=== PATIENT | male | born 1970 | race Caucasian/White ===

== ENCOUNTER 2017-12-31 11:11 | Emergency (ER) | payer BC ==
--- NOTE | 2017-12-31 11:39 | EDM.PDOC ---
<Aminata Carbone - Last Filed: 12/31/17 11:53> ED HPI GENERAL MEDICAL PROBLEM - General Chief Complaint: Abdominal Pain Stated Complaint: ABDOMINAL PAIN Time Seen by Provider: 12/31/17 11:20 Source of Information: Reports: Patient History Limitations: Reports: No Limitations - History of Present Illness INITIAL COMMENTS - FREE TEXT/NARRATIVE: Patient is a 47 YO male who presents today with concerns of a hernia. He had an abdominal hernia repaired in late April or May 2017. He states this was repaired with mesh. He noticed it coming open again about 2 months ago. He does not remember any incident that would have precipitated this. It has not been causing him any difficulties until this morning. He states his lower abdomen has been cramping around the location of the hernia. He states it is not very painful just uncomfortable. He states he does not feel it much when he is supine but when he stands he says it is much more noticeable. He denies change in bowels, nausea, vomiting or urinary symptoms. He was able to eat this morning which did not increase his discomfort. - Related Data Allergies Allergy/AdvReac Type Severity Reaction Status Date / Time narcotics Allergy Hives Uncoded 12/31/17 11:25 Home Meds: Home Meds . [No Known Home Meds] 12/31/17 [History] ED ROS GENERAL - Review of Systems Review Of Systems: See Below Constitutional: Reports: No Symptoms Respiratory: Reports: No Symptoms Cardiovascular: Reports: No Symptoms GI/Abdominal: Reports: Abdominal Pain. Denies: Constipation, Diarrhea, Nausea, Vomiting Skin: Reports: No Symptoms Neurological: Reports: No Symptoms Psychiatric: Reports: No Symptoms ED EXAM, GENERAL - Physical Exam Exam: See Below Exam Limited By: No Limitations General Appearance: Alert, WD/WN, No Apparent Distress Head: Atraumatic Respiratory/Chest: No Respiratory Distress, Lungs Clear, Normal Breath Sounds Cardiovascular: Regular Rate, Rhythm, No Murmur GI/Abdominal: Normal Bowel Sounds, Soft, Tender (slightly tender over area of hernia, no evidence of strangulation), Hernia (superior and to the left of the umbilicus. Approximately 3 cm by 1 cm) Neurological: Alert, Oriented, CN II-XII Intact, Normal Cognition, No Motor/ Sensory Deficits Psychiatric: Normal Affect, Normal Mood Skin Exam: Warm, Dry, Intact, Normal Color Course - Vital Signs Last Recorded V/S: Last Vital Signs Temp 97 F 12/31/17 11:22 Pulse 58 L 12/31/17 13:18 Resp 20 12/31/17 13:18 BP 122/88 12/31/17 13:18 Pulse Ox 99 12/31/17 13:18 - Orders/Labs/Meds Labs: Laboratory Tests 12/31/17 12/31/17 Range/Units 12:00 12:00 WBC 5.73 (4.23-9.07) K/mm3 RBC 4.86 (4.63-6.08) M/mm3 Hgb 14.3 (13.7-17.5) gm/L Hct 43.1 (40.1-51.0) % MCV 88.7 (79.0-92.2) fl MCH 29.4 (25.7-32.2) pg MCHC 33.2 (32.2-35.5) g/dl RDW Std Deviation 43.4 (35.1-43.9) fL Plt Count 264 (163-337) K/mm3 MPV 10.6 (9.4-12.3) fl Neutrophils % (Manual) 45 (40-60) % Band Neutrophils % 0 (0-10) % Lymphocytes % (Manual) 49 H (20-40) % Atypical Lymphs % 0 % Monocytes % (Manual) 2 (2-10) % Eosinophils % (Manual) 3 (0.8-7.0) % Basophils % (Manual) 1 (0.2-1.2) Platelet Estimate Adequate Anisocytosis 1+ slight RBC Morph Comment Abnormal Sodium 140 (136-145) mEq/L Potassium 3.8 (3.5-5.1) mEq/L Chloride 105 (98-107) mEq/L Carbon Dioxide 27 (21-32) mEq/L Anion Gap 11.8 (5-15) BUN 15 (7-18) mg/dL Creatinine 1.1 (0.7-1.3) mg/dL Est Cr Clr Drug Dosing 83.02 mL/min Estimated GFR (MDRD) > 60 (>60) mL/min BUN/Creatinine Ratio 13.6 L (14-18) Glucose 117 H (74-106) mg/dL Calcium 8.8 (8.5-10.1) mg/dL Total Bilirubin 0.5 (0.2-1.0) mg/dL AST 13 L (15-37) U/L ALT 27 (16-63) U/L Alkaline Phosphatase 48 (46-116) U/L C-Reactive Protein < 0.2 (<1.0) mg/dL Total Protein 7.4 (6.4-8.2) g/dl Albumin 3.9 (3.4-5.0) g/dl Globulin 3.5 gm/dL Albumin/Globulin Ratio 1.1 (1-2) Lipase 130 (73-393) U/L Departure - Departure Disposition: Home, Self-Care 01 Clinical Impression: History of umbilical hernia repair, Abdominal pain in male Instructions: Umbilical Hernia, Adult, Abdominal Pain, Adult, [id number] Referrals: Kenneth Ly MD [Physician] - Christ Hong MD [Physician] - Forms: ED Department Discharge Additional Instructions: Suspect cause of discomfort is most likely related to the mesh used for hernia repair. Refrain from any activities that cause worsening pain. Utilize Tylenol and ibuprofen as needed for any discomfort. Please see a general surgeon for reevaluation and treatment. Return to the ED if you develop any new or worsening symptoms. <Ross Gillis O - Last Filed: 01/01/18 10:46> ED HPI GENERAL MEDICAL PROBLEM - General Source of Information: Reports: Patient History Limitations: Reports: No Limitations Abdomen Pain Score (Numeric/FACES): 7 Past Medical History - Past Surgical History GI Surgical History: Reports: Cholecystectomy, Hernia Repair/Other Social & Family History - Tobacco Use Smoking Status *Q: Never Smoker - Caffeine Use Caffeine Use: Reports: Energy Drinks, Soda, Tea - Recreational Drug Use Recreational Drug Use: No Course - Orders/Labs/Meds Labs: Laboratory Tests 12/31/17 12/31/17 Range/Units 12:00 12:00 WBC 5.73 (4.23-9.07) K/mm3 RBC 4.86 (4.63-6.08) M/mm3 Hgb 14.3 (13.7-17.5) gm/L Hct 43.1 (40.1-51.0) % MCV 88.7 (79.0-92.2) fl MCH 29.4 (25.7-32.2) pg MCHC 33.2 (32.2-35.5) g/dl RDW Std Deviation 43.4 (35.1-43.9) fL Plt Count 264 (163-337) K/mm3 MPV 10.6 (9.4-12.3) fl Neutrophils % (Manual) 45 (40-60) % Band Neutrophils % 0 (0-10) % Lymphocytes % (Manual) 49 H (20-40) % Atypical Lymphs % 0 % Monocytes % (Manual) 2 (2-10) % Eosinophils % (Manual) 3 (0.8-7.0) % Basophils % (Manual) 1 (0.2-1.2) Platelet Estimate Adequate Anisocytosis 1+ slight RBC Morph Comment Abnormal Sodium 140 (136-145) mEq/L Potassium 3.8 (3.5-5.1) mEq/L Chloride 105 (98-107) mEq/L Carbon Dioxide 27 (21-32) mEq/L Anion Gap 11.8 (5-15) BUN 15 (7-18) mg/dL Creatinine 1.1 (0.7-1.3) mg/dL Est Cr Clr Drug Dosing 83.02 mL/min Estimated GFR (MDRD) > 60 (>60) mL/min BUN/Creatinine Ratio 13.6 L (14-18) Glucose 117 H (74-106) mg/dL Calcium 8.8 (8.5-10.1) mg/dL Total Bilirubin 0.5 (0.2-1.0) mg/dL AST 13 L (15-37) U/L ALT 27 (16-63) U/L Alkaline Phosphatase 48 (46-116) U/L C-Reactive Protein < 0.2 (<1.0) mg/dL Total Protein 7.4 (6.4-8.2) g/dl Albumin 3.9 (3.4-5.0) g/dl Globulin 3.5 gm/dL Albumin/Globulin Ratio 1.1 (1-2) Lipase 130 (73-393) U/L - Re-Assessments/Exams Free Text/Narrative Re-Assessment/Exam: X-ray of the abdomen revealed nonspecific air and stool patterns. No concerning findings noted. Final interpretation is pending. Labs reviewed: CBC and chem. Panel essentially normal. Glucose 117. CRP less than 0.2. Lipase 130. I personally examined the patient and agree with Aminata BLANDON. Patients pain is most likely related to the mesh placed to repair umbilical hernia. On standing I did not see and or feel a hernia present. Patients pain appears to be along the outer borders of the mesh. He will followup with General Surgeon to address discomfort. Return precautions discussed with patient. He had no additional questions or concerns. The patient remained hemodynamically stable while under my care in the E.D. I reviewed the patients care today and discussed the concerning symptoms for which to returnto the E.D. with the patient/family. The patient/family verbalized understanding. All questions were answered. Departure - Departure Time of Disposition: 13:10 Condition: Good
--- NOTE | 2017-12-31 14:50 | CR ---
Abdomen: Supine and upright views of the abdomen were obtained. Comparison: No prior abdominal x-ray. Surgical clips are seen from prior cholecystectomy. Small calcification within the left pelvis is compatible with phlebolith. Bowel gas pattern is normal. No soft tissue abnormality seen. Bony structures are unremarkable. Impression: 1. Incidental findings. Nothing acute is seen. Diagnostic code #2
== END 2017-12-31 13:18 | disposition home or self-care (01) ==
LOC: JD.ED 11:11
DX: R10.9 Unspecified abdominal pain (principal); Z88.5 Allergy status to narcotic agent; Z87.19 Personal history of other diseases of the digestive system
CPT/HCPCS: 36415; 74019; 74019-26; 80053; 83690; 85025; 86140; 99283; 99284

== ENCOUNTER 2020-04-18 08:28 | Observation (INO) | payer OTHER ==
[~2020-04-18 08:28] MED LIST: Lidocaine 1%/Sod Bicarbonate in NS 8.4% 1 ML Syringe IDERM PRN; Sodium Chloride 0.9% 10 ML Syringe FLUSH PRN
[2020-04-18] MEDS: Lactated Ringers 1,000 ML IV SCH ×3 (08:45→14:32)
[2020-04-18] MEDS ORDERED: Bupivacaine 0.5%/EPINEPHrine 1:200,000 50 ML MDV ONE (09:27)
[2020-04-18] MEDS ORDERED: Lidocaine 1% with EPINEPHrine 1:100,000 20 ML MDV ONE (09:27)
[2020-04-18] MEDS ORDERED: Lidocaine 2% with EPINEPHrine 1:200,000 20 ML SDV ONE (09:36)
[2020-04-18] MEDS ORDERED: fentaNYL 100 MCG/2 ML SDV ONE ×2 (09:37→11:03)
[2020-04-18] MEDS ORDERED: Midazolam 1 MG/ML 2 ML SDV ONE (09:37)
[2020-04-18] MEDS ORDERED: Propofol 200 MG/20 ML SDV ONE ×3 (09:37→11:42)
[2020-04-18] MEDS ORDERED: Lactated Ringers 1,000 ML ONE ×2 (11:24→12:48)
--- NOTE | 2020-04-18 11:30 | PCM.PREANE ---
Preanesthetic Assessment - Anesthesia/Transfusion/Family Hx Anesthesia History: Prior Anesthesia Without Reaction Transfusion History: No Prior Transfusion(s) - Physical Assessment NPO Status Date: 04/17/20 NPO Status Time: 20:00 Vital Signs: Last Vital Signs Temp Pulse 50 L 04/18/20 10:20 Resp 14 04/18/20 10:20 BP 110/78 04/18/20 10:20 Pulse Ox 100 04/18/20 10:20 Height: 1.78 m Weight: 104.78 kg ASA Class: 2 Mental Status: Alert & Oriented x3 Airway Class: Mallampati = 1 Dentition: Reports: Normal Dentition, Norco(s) Thyro-Mental Finger Breadths: 3 Mouth Opening Finger Breadths: 3 - Lab Values: Laboratory Last Values WBC 6.09 K/mm3 (4.23-9.07) 04/18/20 08:46 RBC 4.95 M/mm3 (4.63-6.08) 04/18/20 08:46 Hgb 14.9 gm/dl (13.7-17.5) 04/18/20 08:46 Hct 45.2 % (40.1-51.0) 04/18/20 08:46 MCV 91.3 fl (79.0-92.2) 04/18/20 08:46 MCH 30.1 pg (25.7-32.2) 04/18/20 08:46 MCHC 33.0 g/dl (32.2-35.5) 04/18/20 08:46 RDW Std Deviation 44.8 fL (35.1-43.9) H 04/18/20 08:46 Plt Count 271 K/mm3 (163-337) 04/18/20 08:46 MPV 10.7 fl (9.4-12.3) 04/18/20 08:46 Neut % (Auto) 55.0 % (34.0-67.9) 04/18/20 08:46 Lymph % (Auto) 33.7 % (21.8-53.1) 04/18/20 08:46 [place] % (Auto) 7.2 % (5.3-12.2) 04/18/20 08:46 Eos % (Auto) 3.1 (0.8-7.0) 04/18/20 08:46 Baso % (Auto) 0.7 % (0.1-1.2) 04/18/20 08:46 Neut # (Auto) 3.35 K/mm3 (1.78-5.38) 04/18/20 08:46 Lymph # (Auto) 2.05 K/mm3 (1.32-3.57) 04/18/20 08:46 [place]ataño # (Auto) 0.44 K/mm3 (0.30-0.82) 04/18/20 08:46 Eos # (Auto) 0.19 K/mm3 (0.04-0.54) 04/18/20 08:46 Baso # (Auto) 0.04 K/mm3 (0.01-0.08) 04/18/20 08:46 COVID-19 PCR Not detected (NOT DETECT) 04/14/20 10:00 - Allergies Allergies/Adverse Reactions: Allergies Allergy/AdvReac Type Severity Reaction Status Date / Time acetaminophen [From [place]] Allergy Hives Verified 04/17/20 14:22 codeine Allergy Other Verified 04/17/20 14:22 hydrocodone [From [place]] Allergy Hives Verified 04/17/20 14:22 hydromorphone [From Dilaudid] Allergy Hives Verified 04/17/20 14:22 morphine Allergy Hives Verified 04/17/20 14:22 tramadol Allergy Other Verified 04/17/20 14:22 narcotics Allergy Hives Uncoded 04/17/20 14:22 - Acknowledgements Anesthesia Type Planned: General Anesthesia (as a backup plan), Epidural (for postoperative pain control, placing preoperatively), MAC PreAnesthesia Questionnaire HEENT History: Reports: None Cardiovascular History: Reports: None Respiratory History: Reports: Sleep Apnea Genitourinary History: Reports: None [employer] History: Reports: None Musculoskeletal History: Reports: None Neurological History: Reports: None Psychiatric History: Reports: None Endocrine/Metabolic History: Reports: Vitamin D Deficiency Hematologic History: Reports: None Immunologic History: Reports: None Oncologic (Cancer) History: Reports: None Dermatologic History: Reports: None - Past Surgical History Head Surgeries/Procedures: Reports: None HEENT Surgical History: Reports: None Cardiovascular Surgical History: Reports: None Respiratory Surgical History: Reports: None GI Surgical History: Reports: Cholecystectomy, Hernia Repair/Other Male Surgical History: Reports: Vasectomy Endocrine Surgical History: Reports: None Neurological Surgical History: Reports: None Musculoskeletal Surgical History: Reports: Other (See Below) Other Musculoskeletal Surgeries/Procedures:: foot surgery, knee surgery, left shoulder pain Oncologic Surgical History: Reports: None Dermatological Surgical History: Reports: None - SUBSTANCE USE Smoking Status *Q: Current Every Day Smoker Tobacco Use Within Last Twelve Months: Snuff/Dip Second Hand Smoke Exposure: No Days Per Week of Alcohol Use: 2 Number of Drinks Per Day: 3 Total Drinks Per Week: 6 Recreational Drug Use History: No - HOME MEDS Home Medications: Home Meds . [No Known Home Meds] 12/31/17 [History] - CURRENT (IN HOUSE) MEDS Current Meds: Current Medications Lactated Ringer's (Ringers, Lactated) 1,000 mls @ 125 mls/hr IV ASDIRECTED PERCY Stop: 04/18/20 23:00 Last Admin: 04/18/20 10:54 Dose: 125 mls/hr Documented by: Lidocaine/Sodium Bicarbonate (Buffered Lidocaine 1% In Ns 8.4%) 0.25 ml IDERM ONETIME PRN PRN Reason: Prior to IV Start Stop: 04/18/20 18:00 Last Admin: 04/18/20 08:45 Dose: 0.25 ml Documented by: Sodium Chloride (Saline Flush) 10 ml FLUSH ASDIRECTED PRN PRN Reason: Keep Vein Open Stop: 04/18/20 18:00 Discontinued Medications Bupivacaine HCl/Epinephrine Bitart (Marcaine 0.5%/Epinephrine 1:200,000) Confirm Administered Dose 50 ml .ROUTE .STK-MED ONE Stop: 04/18/20 09:28 Fentanyl (Sublimaze) Confirm Administered Dose 100 mcg .ROUTE .STK-MED ONE Stop: 04/18/20 09:38 Fentanyl (Sublimaze) Confirm Administered Dose 100 mcg .ROUTE .STK-MED ONE Stop: 04/18/20 11:04 Lidocaine/Epinephrine (Xylocaine 1% With Epinephrine 1:100,000) Confirm Administered Dose 40 ml .ROUTE .STK-MED ONE Stop: 04/18/20 09:28 Lidocaine/Epinephrine (Xylocaine-Mpf 2%-Epi 1:200,000) Confirm Administered Dose 20 ml .ROUTE .STK-MED ONE Stop: 04/18/20 09:37 Midazolam HCl (Versed 1 Mg/Ml) Confirm Administered Dose 4 mg .ROUTE .STK-MED ONE Stop: 04/18/20 09:38 Propofol (Diprivan 20 Ml) Confirm Administered Dose 400 mg .ROUTE .STK-MED ONE Stop: 04/18/20 09:38 Propofol (Diprivan 20 Ml) Confirm Administered Dose 200 mg .ROUTE .STK-MED ONE Stop: 04/18/20 10:43
[2020-04-18] MEDS ORDERED: Bupivacaine 0.25% 10 ML SDV ONE (11:59)
[2020-04-18] MEDS ORDERED: Ondansetron 4 MG/2 ML SDV ONE (12:02)
[2020-04-18] MEDS ORDERED: fentaNYL 100 MCG/2 ML SDV EPIDUR PRN (12:42)
[2020-04-18] MEDS ORDERED: ePHEDrine 50 MG/ML SDV IVPUSH PRN (12:42)
--- NOTE | 2020-04-18 12:42 | PCM.PRNOTE ---
- Free Text/Narrative Note: Continuous thoracic epidural catheter placement for postoperative pain management Dx: Recurrent ventral hernia Surgery: Open ventral hernia repair with mesh Requesting surgeon: Dr. Jennifer Garcia Patient has been interviewed, risk/benefits/alternatives discussed, questions answered. Vital signs and labs reviewed. Consent signed. IVF bolus given.. Patient is sitting on the stretcher in preoperative room, supported by RN, positioning using pillow. Time out performed. Mask, head cover, sterile gloves on. Betadine preparation x3 and sterile drape. Local infiltration with 1% Lidocaine at T9 - T10 interspace. 1st attempt with 17G Tuohy needle midline approach. Unablle to obtain loss of resistance after several redirecrion attempts.. 2nd attempt at T10 -T11 interspace. Loss of resistance at 6 cm. No fluid obtained, no blood obtained. No paresthesia encountered. Easy threading in of 19G catheter. Secured at 14 cm at the skin. Test dose given 5 ml of 1.5% Lidocaine with 1:200K epinephrine, negative for intravascular/ negative for intrathecal placement. Vital signs stable. 10 mls of 2 % PF Lidocaine with 1:200K epinephrine, followed by 100 mcg of Fentanyl given in incremental epidural boluses. Catheter dressing applied and filter attached. Level assessed preoperatively at 10:25 approximately T10. Post procedure in PACU : PCEA drip 0.125% Bupivacaine with 2 mcg/ml of Fentanyl started at 13:40 At 14:00 rate at 8 mls/hr with patient controlled bolus 3 mls every 15 min. Patient received instruction and education about PCEA. Level assessed approximately at T9. Start of procedure: 10:00 End of procedure: 10:15
[2020-04-18] MEDS ORDERED: Bupivacaine 0.5% 10 ML SDV ONE (13:17)
--- NOTE | 2020-04-18 13:36 | PCM.PRNOTE ---
- Free Text/Narrative Note: Date: 04/18/2020 Operation: open retrorectus recurrent incisional hernia repair with mesh reinforcement Surgeon: Jaime Garcia MD Pre-op antibiotics: ancef 2 g IV DVT prophylaxis: SCD EBL: 30 cc Findings: recurrent midline abdominal incisional hernia with evidence of prior ventral mesh patch underlay. Hernia measured 4 x 5 cm. No significant adhesions to anterior abdominal wall. A 15 x 20 cm rectangular piece of Progrip mesh was cut to size and placed for reinforcement of repair in the retrorectus space with wide overlap. Detailed Report: An epidural catheter was placed by the anesthesia team prior to going to the OR. The patient was positioned supine on the operating table and time out was performed. Monitored anesthesia care was initiated. A rosales catheter was placed and abdominal hair was clipped. The abdomen was prepped and draped in usual sterile fashion. After ensuring good anesthetic effect with the epidural catheter, a midline laparotomy incision was made from the midepigastrium to about 5 cm inferior to the umbilicus. Dissection continued through subcutaneous fat until a thickened hernia sac was encountered. Superior to the hernia, the linea alba was incised and the abdominal cavity entered safely. The incision was extended through the hernia sac and inferiorly. There were no significant adhesions to the anterior abdominal wall. Thick omentum lay deep to the incision along its entire length. A moist towel was placed to cover the viscera. The edge of the rectus muscle on the right side was palpated, and an incision through the rectus fascia at the medial aspect was made. Muscle fibers were visualized. The anterior sheath and rectus muscle were retracted laterally as the incision through the rectus sheath was extended superiorly and inferiorly about 5 cm above and below the hernia defect. The retrorectus space was developed out laterally until the neurovascular bundles were seen penetrating the posterior aspect of the muscle. The same technique was used on the left side. The posterior sheath and transversalis fascia were then closed along the midline with running 2-0 vicryl suture. Part if the redundant hernia sac and old mesh were excised sharply during this part of the operation. Next, a 15 x 20 cm rectangular piece of Progrip mesh was brought onto the field. This was laid in the retrorectus space and excess mesh was trimmed away with scissors. The mesh was tacked to the underlying tissue at the superior, lateral and inferior edges with simple 2-0 prolene sutures. The anterior rectus fascia was then closed over the mesh, recreating the linea alba, with running 0 PDS suture. Subcutaneous tissue was re-approximated with interrupted vicryl suture at the deep dermal layer and skin was closed with running subcuticular vicryl suture. The wound was dressed with dermabond. The patient tolerated the procedure well.
[2020-04-18] MEDS: Bupivacaine/fentaNYL/NS 100 ML Bag EPIDUR PRN ×2 (13:40→22:27)
--- NOTE | 2020-04-18 14:10 | PCM.POSTAN ---
POST ANESTHESIA ASSESSMENT - MENTAL STATUS Mental Status: Alert, Oriented - VITAL SIGNS Vital Signs: Last Vital Signs Temp 97.0 F 04/18/20 13:12 Pulse 50 L 04/18/20 10:20 Resp 13 04/18/20 13:45 BP 106/73 04/18/20 13:45 Pulse Ox 100 04/18/20 13:50 - RESPIRATORY Respiratory Status: Respiratory Rate WNL, Airway Patent, O2 Saturation Stable, Supplemental Oxygen - CARDIOVASCULAR CV Status: Pulse Rate WNL, Blood Pressure Stable - GASTROINTESTINAL GI Status: No Symptoms - PAIN Pain Score: 5 (epidural drip connected and bolused) - POST OP HYDRATION Hydration Status: Adequate & Stable
[2020-04-18] MEDS: Heparin Sodium 5,000 Units/ML Vial SUBCUT SCH ×2 (14:31→21:32)
[2020-04-18] MEDS: diphenhydrAMINE 50 MG/ML SDV IVPUSH PRN ×2 (17:23→23:05)
[2020-04-19] MEDS ORDERED: Bupivacaine 0.25% 10 ML SDV ONE
[2020-04-19] MEDS ORDERED: Lidocaine 1.5% with EPINEPHrine 1:200,000 5 ML Amp ONE
[2020-04-19] MEDS: Lactated Ringers 1,000 ML IV SCH (00:32)
[2020-04-19] MEDS: Heparin Sodium 5,000 Units/ML Vial SUBCUT SCH ×3 (06:18→22:29)
[2020-04-19] MEDS ORDERED: Sodium Chloride 0.9% 10 ML Syringe FLUSH PRN (07:44)
[2020-04-19] MEDS: Bupivacaine/fentaNYL/NS 100 ML Bag EPIDUR PRN ×3 (07:45→20:18)
[2020-04-19] MEDS ORDERED: Ondansetron 4 MG in Sodium Chloride 0.9% 50 ML IV PRN (07:55)
--- NOTE | 2020-04-19 07:55 | PCM.SN.2 ---
- Free Text/Narrative Note: POD 1 s/p [place] incisional hernia repair S: ambulating. Pain controlled. Feels the need to pass gas but can't. O: AF-VSS epidural in place breathing comfortably, on nasal cannula incision site clean, dry, intact rosales in place with clear yellow output extremities warm and well perfused A: Doing well post-op day 1. Tolerated diet last night but has some bloating/gas this morning. P: -continue epidural with plan for removal tomorrow morning- will hold AM heparin tomorrow in preparation for removal. -IS, OOB, PT consult; pulmonary toilet -saline lock IV -continue rosales catheter until epidural removal tomorrow due to concern for urinary retention -go slow with diet -heparin SC 5000 u for DVT ppx -anticipate discharge as early as tomorrow
[2020-04-19] MEDS ORDERED: Ondansetron 4 MG/2 ML SDV IVPUSH PRN (07:57)
--- NOTE | 2020-04-19 11:06 | PCM48HPAN ---
Post Anesthesia Note - EVALUATION WITHIN 48HRS OF ANESTHETIC Vital Signs in Normal Range: Yes Patient Participated in Evaluation: Yes Respiratory Function Stable: Yes Airway Patent: Yes Cardiovascular Function Stable: Yes Hydration Status Stable: Yes Pain Control Satisfactory: Yes Nausea and Vomiting Control Satisfactory: Yes Mental Status Recovered: Yes Vital Signs: Last Vital Signs Temp 97.9 F 04/19/20 08:00 Pulse 67 04/19/20 04:00 Resp 17 04/19/20 08:00 BP 109/63 04/19/20 08:00 Pulse Ox 97 04/19/20 08:00 - COMMENTS/OBSERVATIONS Free Text/Narrative:: Assessment and re-evaluation of the patient receiving a continuous epidural drip 07:40 Patient is on his post-procedure day 1. Vitas signs stable. Thoracic epidural site intact. Current rate of Bupivacaine 0.125% with Fentanyl 2mcg/ml has been increased to 10 mls/hr to (PCEA bolus has been increased from 3 mls q 10 min). Patient is stable hemodynamically at this rate and tolerating well. No lower extremities weakness or numbness noted. Patient is up to the chair and may ambulate with assistance as tolerated. Plan is not to remove epidural catheter at this time. We will reevaluate the patient within the next 24 hours. Gibson Barry CRNA. Additional documentation: Called in at 10:20 am due to patient discomfort to evaluate catheter. The connector tip to the catheter found accidentally disconnected and leaking. The catheter has been thoroughly disinfected and safely reconnected to the drip. A bolus of 5 mls of 1.5% PF Lidocaine with 1:200k epinephrine has been given. Patient reports pain relief and instructed to stay supine for at least 30 minutes. Vital signs rechecked and stable. Gibson Barry CRNA.
[2020-04-19] MEDS: diphenhydrAMINE 50 MG/ML SDV IVPUSH PRN ×2 (13:15→21:30)
[2020-04-20] MEDS: Bupivacaine/fentaNYL/NS 100 ML Bag EPIDUR PRN ×3 (00:57→09:24)
[2020-04-20] MEDS: Heparin Sodium 5,000 Units/ML Vial SUBCUT SCH ×3 (06:18→14:03)
[2020-04-20] MEDS ORDERED: Polyethylene Glycol 3350 Powder 17 GM Packet PO PRN (07:50)
[2020-04-20] MEDS ORDERED: Docusate Sodium 100 MG Cap PO PRN (07:50)
[2020-04-20] MEDS: diphenhydrAMINE 50 MG/ML SDV IVPUSH PRN (11:44)
--- NOTE | 2020-04-20 14:22 | PCM48HPAN ---
Post Anesthesia Note - EVALUATION WITHIN 48HRS OF ANESTHETIC Vital Signs in Normal Range: Yes Patient Participated in Evaluation: Yes Respiratory Function Stable: Yes Airway Patent: Yes Cardiovascular Function Stable: Yes Hydration Status Stable: Yes Pain Control Satisfactory: Yes Nausea and Vomiting Control Satisfactory: Yes Mental Status Recovered: Yes Vital Signs: Last Vital Signs Temp 97.4 F 04/20/20 08:00 Pulse 67 04/19/20 04:00 Resp 18 04/20/20 11:54 BP 99/64 04/20/20 11:46 Pulse Ox 90 L 04/20/20 11:46 - COMMENTS/OBSERVATIONS Free Text/Narrative:: Assessment and re-evaluation of the patient receiving a continuous epidural drip 13:45 Patient is on his post-procedure day 2. Vitas signs stable. Patient is stable hemodynamically at this rate and tolerating well. No lower extremities weakness or numbness noted. Thoracic epidural site intact. Bupivacaine 0.125% with Fentanyl 2mcg/ml DRIP has been discontinued. Fentanyl 100 mcg bolus has been administered and epidural connector has been capped. Plan is not to remove epidural catheter at this time. Patient can have epidural opioid boluses PRN as ordered. Patient is up to the chair and may ambulate with assistance as tolerated. We will reevaluate the patient within the next 24 hours. Gibson Barry CRNA.
[2020-04-20] MEDS ORDERED: oxyCODONE 5 MG Tab PO PRN (14:47)
[2020-04-20] MEDS ORDERED: fentaNYL 100 MCG/2 ML SDV IVPUSH PRN (14:47)
[2020-04-20] MEDS ORDERED: Ketorolac 30 MG/ML SDV IVPUSH ONE (15:00)
--- NOTE | 2020-04-20 19:34 | PCM.DCSUM1 ---
Discharge Summary - Hospital Course Free Text/Narrative:: Admitted for elective retrorectus mesh repair of recurrent incisional hernia on 04/18. An epidural catheter was placed pre-operatively for management of post-op pain. The operation was routine, and post-operatively the patient did well. On POD 2, the catheter was stopped and pain management was good. [place] catheter was removed and the patient was able to void. He tolerated a diet, passed stool, and ambulated independently after evaluation with physical therapy. He was ready for discharge to home the evening of post-op day 2. Diagnosis: Stroke: No - Discharge Data Discharge Date: 04/20/20 Discharge Disposition: Home, Self-Care 01 Condition: Good - Referral to Home Health Primary Care Physician: PCP None - Patient Summary/Data Operative Procedure(s) Performed: open retrorectus repair of recurrent incisional hernia Consults: Consultations 04/19/20 07:46 Consult to Physical Therapy [PT Evaluation and Treatment] [CONS] Routine - Patient Instructions Diet: Usual Diet as Tolerated Activity: No Lifting Over 10 Pounds Showering/Bathing: May Shower Wound/Incision Care: Keep Operative Site/Wound Site Clean and Dry Notify Provider of: Fever, Increased Pain, Swelling and Redness, Drainage, Nausea and/or Vomiting - Discharge Plan *PRESCRIPTION DRUG MONITORING PROGRAM REVIEWED*: Not Applicable *COPY OF PRESCRIPTION DRUG MONITORING REPORT IN PATIENT MARIANNA: Not Applicable Prescriptions/Med Rec: oxyCODONE 5 mg PO Q4H PRN #20 tab PRN Reason: Pain Home Medications: Home Meds oxyCODONE 5 mg PO Q4H PRN #20 tab 04/20/20 [Rx] Oxygen Therapy Mode: Room Air Patient Handouts: Steps to Quit Smoking - Discharge Summary/Plan Comment DC Time >30 min.: No - Patient Data Vitals - Most Recent: Last Vital Signs Temp 36.1 C 04/20/20 15:50 Pulse 67 04/19/20 04:00 Resp 19 04/20/20 15:50 BP 111/81 04/20/20 15:50 Pulse Ox 95 04/20/20 15:50 Weight - Most Recent: 107.955 kg I&O - Last 24 hours: Intake & Output 04/20/20 04/20/20 04/20/20 06:59 14:59 22:59 Intake Total 800 360 Output Total 950 1475 Balance -150 -1115 Med Orders - Current: Current Medications Diphenhydramine HCl (Benadryl) 25 mg IVPUSH Q6H PRN PRN Reason: pruritis Last Admin: 04/20/20 11:44 Dose: 25 mg Documented by: Docusate Sodium (Colace) 100 mg PO BID PRN PRN Reason: Constipation Last Admin: 04/20/20 08:23 Dose: 100 mg Documented by: Fentanyl (Sublimaze) 50 mcg IVPUSH Q2H PRN PRN Reason: Breakthrough Pain Ondansetron HCl (Zofran) 4 mg IVPUSH Q8H PRN PRN Reason: NAUSEA Last Admin: 04/19/20 08:36 Dose: 4 mg Documented by: Oxycodone HCl (Oxycodone) 5 mg PO Q4H PRN PRN Reason: Pain (moderate 4-6) Polyethylene Glycol (Miralax) 17 gm PO DAILY PRN PRN Reason: Constipation Last Admin: 04/20/20 08:23 Dose: 17 gm Documented by: Sodium Chloride (Saline Flush) 10 ml FLUSH ASDIRECTED PRN PRN Reason: Keep Vein Open Discontinued Medications Bupivacaine HCl (Sensorcaine-Mpf 0.25%) Confirm Administered Dose 20 ml .ROUTE .STK-MED ONE Stop: 04/18/20 12:00 Bupivacaine HCl (Sensorcaine-Mpf 0.5%) Confirm Administered Dose 10 ml .ROUTE .STK-MED ONE Stop: 04/18/20 13:18 Bupivacaine HCl/Epinephrine Bitart (Marcaine 0.5%/Epinephrine 1:200,000) Confirm Administered Dose 50 ml .ROUTE .STK-MED ONE Stop: 04/18/20 09:28 Ephedrine Sulfate (Ephedrine Sulfate) 5 mg IVPUSH ASDIRECTED PRN PRN Reason: Hypotension Fentanyl (Sublimaze) Confirm Administered Dose 100 mcg .ROUTE .STK-MED ONE Stop: 04/18/20 09:38 Fentanyl (Sublimaze) Confirm Administered Dose 100 mcg .ROUTE .STK-MED ONE Stop: 04/18/20 11:04 Fentanyl (Sublimaze) 100 mcg EPIDUR Q3H PRN PRN Reason: Pain Last Admin: 04/20/20 13:57 Dose: 100 mcg Documented by: Fentanyl/Bupivacaine HCl (Fentanyl/Bupivacaine/Ns 2 Mcg-0.125% 100 Ml) 100 ml EPIDUR ASDIRECTED PRN PRN Reason: Pain Last Admin: 04/20/20 09:24 Dose: 100 ml Documented by: Heparin Sodium (Porcine) (Heparin Sodium) 5,000 units SUBCUT Q8H [facility] Last Admin: 04/20/20 14:03 Dose: 5,000 units Documented by: Lactated Ringer's (Ringers, Lactated) 1,000 mls @ 125 mls/hr IV ASDIRECTED [facility] Stop: 04/18/20 23:00 Last Admin: 04/18/20 10:54 Dose: 125 mls/hr Documented by: Lactated Ringer's (Ringers, Lactated) Confirm Administered Dose 1,000 mls @ as directed .ROUTE .STK-MED ONE Stop: 04/18/20 11:25 Lactated Ringer's (Ringers, Lactated) Confirm Administered Dose 1,000 mls @ as directed .ROUTE .STK-MED ONE Stop: 04/18/20 12:49 Lactated Ringer's (Ringers, Lactated) 1,000 mls @ 100 mls/hr IV ASDIRECTED [facility] Last Admin: 04/19/20 00:32 Dose: 100 mls/hr Documented by: Ondansetron HCl 4 mg/ Sodium (Chloride) 52 mls @ 100 mls/hr IV Q8H PRN PRN Reason: Nausea Ketorolac Tromethamine (Toradol) 30 mg IVPUSH ONETIME ONE Stop: 04/20/20 15:01 Last Admin: 04/20/20 15:11 Dose: 30 mg Documented by: Lidocaine/Epinephrine (Xylocaine 1% With Epinephrine 1:100,000) Confirm Administered Dose 40 ml .ROUTE .STK-MED ONE Stop: 04/18/20 09:28 Lidocaine/Epinephrine (Xylocaine-Mpf 2%-Epi 1:200,000) Confirm Administered Dose 20 ml .ROUTE .STK-MED ONE Stop: 04/18/20 09:37 Lidocaine/Sodium Bicarbonate (Buffered Lidocaine 1% In Ns 8.4%) 0.25 ml IDERM ONETIME PRN PRN Reason: Prior to IV Start Stop: 04/18/20 18:00 Last Admin: 04/18/20 08:45 Dose: 0.25 ml Documented by: Midazolam HCl (Versed 1 Mg/Ml) Confirm Administered Dose 4 mg .ROUTE .STK-MED ONE Stop: 04/18/20 09:38 Ondansetron HCl (Zofran) Confirm Administered Dose 8 mg .ROUTE .STK-MED ONE Stop: 04/18/20 12:03 Propofol (Diprivan 20 Ml) Confirm Administered Dose 400 mg .ROUTE .STK-MED ONE Stop: 04/18/20 09:38 Propofol (Diprivan 20 Ml) Confirm Administered Dose 200 mg .ROUTE .STK-MED ONE Stop: 04/18/20 10:43 Propofol (Diprivan 20 Ml) Confirm Administered Dose 400 mg .ROUTE .STK-MED ONE Stop: 04/18/20 11:43 Sodium Chloride (Saline Flush) 10 ml FLUSH ASDIRECTED PRN PRN Reason: Keep Vein Open Stop: 04/18/20 18:00
== END 2020-04-20 20:15 | disposition home or self-care (01) ==
LOC: JD.SDS 08:28 → JD.MS 08:28 → JD.ICU 08:28 → JD.SDS 13:14
PROVIDERS: ADMIT Surgery; ATTEND Surgery
DX: K43.2 Incisional hernia without obstruction or gangrene (principal); G47.30 Sleep apnea, unspecified; F17.290 Nicotine dependence, other tobacco product, uncomplicated; Z11.59 Encounter for screening for other viral diseases; Z88.6 Allergy status to analgesic agent; Z88.5 Allergy status to narcotic agent; Z90.49 Acquired absence of other specified parts of digestive tract
CPT/HCPCS: 36415; 49565; 49568; 85025; 87635; 96374; 96375; 97116; 97161; A9270; C1781; G0378; J1200; J1644; J1885; J2250; J2405; J2704; J3010; J3490; J7120; 00752; U0002

== ENCOUNTER 2021-05-29 06:59 | Day surgery (SDC) | payer OTHER ==
[~2021-05-29 06:59] MED LIST changes: +Lactated Ringers 1,000 ML IV SCH
[2021-05-29] MEDS ORDERED: Bupivacaine 0.5%/EPINEPHrine 1:200,000 50 ML MDV ONE (07:18)
--- NOTE | 2021-05-29 07:25 | PCM.PREANE ---
Preanesthetic Assessment - Procedure Proposed Procedure: laparoscopic ventral hernia repair - Anesthesia/Transfusion/Family Hx Anesthesia History: Prior Anesthesia Without Reaction Family History of Anesthesia Reaction: No Transfusion History: No Prior Transfusion(s) - Review of Systems General: No Symptoms Pulmonary: No Symptoms Cardiovascular: No Symptoms Gastrointestinal: No Symptoms Neurological: No Symptoms Other: Reports: None - Physical Assessment NPO Status Date: 05/28/21 NPO Status Time: 00:00 Height: 1.78 m Weight: 104.78 kg ASA Class: 2 Mental Status: Alert & Oriented x3 Airway Class: Mallampati = 1 Dentition: Reports: Normal Dentition Thyro-Mental Finger Breadths: 3 Mouth Opening Finger Breadths: 3 ROM/Head Extension: Full Lungs: Clear to Auscultation, Normal Respiratory Effort Cardiovascular: Regular Rate, Regular Rhythm - Allergies Allergies/Adverse Reactions: Allergies Allergy/AdvReac Type Severity Reaction Status Date / Time acetaminophen [From [place]] Allergy Hives Verified 05/28/21 19:15 codeine Allergy Other Verified 05/28/21 19:15 hydrocodone [From [place]] Allergy Hives Verified 05/28/21 19:15 hydromorphone [From Dilaudid] Allergy Hives Verified 05/28/21 19:15 morphine Allergy Hives Verified 05/28/21 19:15 tramadol Allergy Other Verified 05/28/21 19:15 narcotics Allergy Hives Uncoded 05/28/21 19:15 - Blood Blood Available: No Product(s) Available: None - Anesthesia Plan Pre-Op Medication Ordered: None - Acknowledgements Anesthesia Type Planned: General Anesthesia Pt an Appropriate Candidate for the Planned Anesthesia: Yes Alternatives and Risks of Anesthesia Discussed w Pt/Guardian: Yes Pt/Guardian Understands and Agrees with Anesthesia Plan: Yes PreAnesthesia Questionnaire HEENT History: Reports: Impaired Vision Cardiovascular History: Reports: None Respiratory History: Reports: Sleep Apnea Gastrointestinal History: Reports: None Genitourinary History: Reports: None BILLIARD TABLE REPAIRER History: Reports: None Musculoskeletal History: Reports: None Neurological History: Reports: None Psychiatric History: Reports: None Endocrine/Metabolic History: Reports: Vitamin D Deficiency Hematologic History: Reports: None Immunologic History: Reports: None Oncologic (Cancer) History: Reports: None Dermatologic History: Reports: None - Infectious Disease History Infectious Disease History: Reports: None 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 - Past Surgical History Head Surgeries/Procedures: Reports: None HEENT Surgical History: Reports: None Cardiovascular Surgical History: Reports: None Respiratory Surgical History: Reports: None GI Surgical History: Reports: Cholecystectomy, Hernia Repair/Other Female Surgical History: Reports: None Male Surgical History: Reports: Cystectomy, Vasectomy Endocrine Surgical History: Reports: None Neurological Surgical History: Reports: None Musculoskeletal Surgical History: Reports: Other (See Below) Other Musculoskeletal Surgeries/Procedures:: ankle reconstructions, knee surgery, left shoulder pain, Oncologic Surgical History: Reports: None Dermatological Surgical History: Reports: None - SUBSTANCE USE Tobacco Use Status *Q: Current Every Day Tobacco User Tobacco Use Within Last Twelve Months: Snuff/Dip Second Hand Smoke Exposure: No Days Per Week of Alcohol Use: 1 Number of Drinks Per Day: 2 Total Drinks Per Week: 2 Recreational Drug Use History: No - HOME MEDS Home Medications: Home Meds . [No Known Home Meds] 05/28/21 [History] - CURRENT (IN HOUSE) MEDS Current Meds: Current Medications Lactated Ringer's (Ringers, Lactated) 1,000 mls @ 125 mls/hr IV ASDIRECTED [facility] Stop: 05/29/21 23:00 Lidocaine/Sodium Bicarbonate (Lidocaine 1%/Sod Bicarbonate In Ns 8.4% 1 Ml Syringe) 0.25 ml IDERM ONETIME PRN PRN Reason: Prior to IV Start Stop: 05/29/21 18:00 Sodium Chloride (Sodium Chloride 0.9% 10 Ml Syringe) 10 ml FLUSH ASDIRECTED PRN PRN Reason: Keep Vein Open Stop: 05/29/21 18:00
[2021-05-29] MEDS ORDERED: Propofol 200 MG/20 ML SDV ONE (07:32)
[2021-05-29] MEDS ORDERED: Ondansetron 4 MG/2 ML SDV ONE (07:32)
[2021-05-29] MEDS ORDERED: Rocuronium 50 MG/5 ML Vial ONE (07:32)
[2021-05-29] MEDS ORDERED: Midazolam 1 MG/ML 2 ML SDV ONE (07:33)
[2021-05-29] MEDS ORDERED: fentaNYL 250 MCG/5 ML SDV ONE ×2 (07:33→08:30)
[2021-05-29] MEDS ORDERED: ceFAZolin 1 GM Vial ONE (07:38)
[2021-05-29] MEDS ORDERED: Labetalol 100 MG/20 ML MDV ONE (08:31)
[2021-05-29] MEDS ORDERED: Ketorolac 30 MG/ML SDV ONE (08:31)
[2021-05-29] MEDS ORDERED: Lactated Ringers 1,000 ML ONE (08:33)
[2021-05-29] MEDS ORDERED: fentaNYL 100 MCG/2 ML SDV IVPUSH PRN (09:44)
--- NOTE | 2021-05-29 09:45 | PCM.POSTAN ---
POST ANESTHESIA ASSESSMENT - MENTAL STATUS Mental Status: Alert, Oriented - RESPIRATORY Respiratory Status: Respiratory Rate WNL, Airway Patent, O2 Saturation Stable - CARDIOVASCULAR CV Status: Pulse Rate WNL, Blood Pressure Stable - GASTROINTESTINAL GI Status: No Symptoms - PAIN Pain Score: 0 - POST OP HYDRATION Hydration Status: Adequate & Stable - OBSERVATIONS Free Text/Narrative:: NO ANESTHSIA COMPLICATIONS NOTED
--- NOTE | 2021-05-29 09:52 | PCM.PRNOTE ---
- Free Text/Narrative Note: Date: 05/29/2021 Operation: laparoscopic incisional hernia repair with intraperitoneal mesh underlay Indication: small incisional hernia at superior aspect of midline closure after retrorectus mesh repair of a recurrent umbilical hernia Surgeon: Jaime Garcia MD Antibiotic: 2 g ancef IV pre-incision EBL: 10 cc DVT ppx: SCD Specimens: none Findings: 2 cm circular fascial defect at superior aspect of prior midline closure. Omentum was adherent to the anterior abdominal wall. A 15 x 20 cm oval shaped coated permanent polypropylene mesh was placed intraperitoneally of her primary closure of the hernia defect, with overlap of prior midline incisional closure. Detailed Report: The patient was taken to the operating room and placed on the table in supine position. Timeout was performed and general endotracheal anesthesia was initiated. Both arms were tucked at the patient's side, and abdominal hair was clipped prior to prepping and draping the abdomen in usual sterile fashion. A Veress needle was placed at the left upper quadrant in order to establish pneumoperitoneum. A needle and syringe was used to aspirate air at the left lower quadrant. Once pressure reached 15 mmHg a bladed 5 mm trocar was inserted at this site. A 5 mm 30 degree laparoscope was inserted into the abdomen and contents were inspected. Additional left lateral abdominal 5 mm ports were placed under laparoscopic visualization. The hernia defect was apparent, at the midline just inferior to the end of the falciform ligament. The defect measured about the size of the surgeon's index finger circumferentially. Omental attachments within the hernia sac and along the anterior midline were taken down using hook monopolar energy. Once all adhesions were cleared, the falciform ligament was taken off the anterior abdominal wall to prepare landing zone for intraperitoneal mesh placement. The hernia sac was removed using a [place] LigaSure. The hernia sac was removed from the body. 0 PDS sutures were used to close the hernia defect in transverse orientation using a laparoscopic suture passer. Prior to tying these down, a bladed 12 mm trocar was inserted through the hernia defect to allow for placement of the mesh. A 15 x 20 cm oval coated permanent mesh (Ventralite) was prepared with 0 Vicryl suture anchors at the cardinal directions, rolled up and introduced into the abdomen through the 12 mm port. Care was taken to ensure that the coated side of the mesh faced towards the viscera. The mesh was positioned to overlap with the hernia defect and the inferior part of the midline where fascia appeared somewhat attenuated. Small stab incisions were made to allow for anchoring sutures to be pulled up through the fascia and the laparoscopic suture passer was used to grab the suture and bring it out exteriorly. Tension was placed on these anchoring sutures and the mesh appeared to lay nicely in the anterior abdominal wall without undue tension. The PDS sutures placed for primary closure of the hernia defect were tied down. The transfascial sutures of the mesh were tied down, and a laparoscopic secure strap device with absorbable tacks was used to secure the edge of the mesh along its circumference to the anterior abdominal wall. An additional 5 mm port was placed at the right lateral mid abdomen in order to allow for secure strap tacking of the left side aspect of the mesh. Ports were removed under laparoscopic visualization and pneumoperitoneum was released. All incisions were closed at the level of skin with subcuticular Vicryl suture except for the small stab incisions for the transfascial sutures which were dressed with Dermabond. All incisions were dressed with Dermabond. A total of 50 cc 0.5% Marcaine with epinephrine was used for local anesthetic throughout the case. The patient tolerated the procedure well.
[2021-05-29] MEDS ORDERED: diphenhydrAMINE 50 MG/ML SDV IVPUSH STA (10:02)
[2021-05-29] MEDS ORDERED: oxyCODONE 5 MG Tab PO PRN (10:12)
--- NOTE | 2021-05-29 13:15 | PCM48HPAN ---
Post Anesthesia Note - EVALUATION WITHIN 48HRS OF ANESTHETIC Vital Signs in Normal Range: Yes Patient Participated in Evaluation: Yes Respiratory Function Stable: Yes Airway Patent: Yes Cardiovascular Function Stable: Yes Hydration Status Stable: Yes Pain Control Satisfactory: Yes Nausea and Vomiting Control Satisfactory: Yes Mental Status Recovered: Yes Vital Signs: Last Vital Signs Temp 36.4 C 05/29/21 12:00 Pulse 53 L 05/29/21 12:00 Resp 12 05/29/21 12:00 BP 119/74 05/29/21 12:00 Pulse Ox 96 05/29/21 12:00 - COMMENTS/OBSERVATIONS Free Text/Narrative:: no anesthesia complications noted
== END 2021-05-29 12:35 | disposition home or self-care (01) ==
LOC: JD.SDS 06:59
PROVIDERS: ATTEND Surgery
DX: K43.2 Incisional hernia without obstruction or gangrene (principal); G47.30 Sleep apnea, unspecified; E55.9 Vitamin D deficiency, unspecified; Z88.5 Allergy status to narcotic agent; Z88.8 Allergy status to other drugs, medicaments and biological substances; Z98.890 Other specified postprocedural states
CPT/HCPCS: 49654; J0690; J1200; J1885; J2250; J2405; J2704; J3010; J3490; J7120; 00790; C1781

== ENCOUNTER 2025-05-26 07:00 | Day surgery (SDC) | payer OTHER ==
[~2025-05-26 07:00] MED LIST changes: -Lactated Ringers 1,000 ML IV SCH; -Lidocaine 1%/Sod Bicarbonate in NS 8.4% 1 ML Syringe IDERM PRN; +Morphine 8 MG, EPINEPHrine 0.3 MG, Cefuroxime 750 MG, Ketorolac 30 MG, Sodium Chloride ... PRN; +Sodium Chloride 0.9% 10 ML Syringe FLUSH SCH; +Triamcinolone Acetonide 40 MG/ML 1 ML SDV ONE; +fentaNYL 100 MCG/2 ML SDV ONE; +propofoL 500 MG/50 ML 50 ML ONE
[2025-05-26] MEDS ORDERED: Sodium Chloride 0.9% 10 ML Syringe FLUSH PRN (07:05)
[2025-05-26] MEDS ORDERED: Lactated Ringers 1,000 ML IV SCH (07:15)
[2025-05-26] MEDS: Lactated Ringers 1,000 ML IV SCH (07:30)
[2025-05-26] MEDS ORDERED: Midazolam 1 MG/ML 2 ML SDV ONE (08:04)
[2025-05-26] MEDS ORDERED: Lactated Ringers 1,000 ML IV ONE (08:30)
[2025-05-26] MEDS ORDERED: diphenhydrAMINE 50 MG/ML SDV ONE (08:32)
[2025-05-26] MEDS ORDERED: fentaNYL 100 MCG/2 ML SDV IVPUSH PRN (08:53)
[2025-05-26] MEDS ORDERED: Ondansetron 4 MG/2 ML SDV IVPUSH PRN (08:53)
[2025-05-26] MEDS ORDERED: Sodium Chloride 0.9% 10 ML Syringe FLUSH SCH (09:00)
[2025-05-26] MEDS ORDERED: ePHEDrine 50 MG/ML SDV ONE (09:14)
[2025-05-26] MEDS: Morphine 8 MG, EPINEPHrine 0.3 MG, Cefuroxime 750 MG, Ketorolac 30 MG, Sodium Chloride ... PRN (09:26)
[2025-05-26] MEDS ORDERED: Ropivacaine 0.5% 5 MG/ML 30 ML SDV ONE (09:54)
[2025-05-30] MEDS ORDERED: Sodium Chloride 0.9% 10 ML Syringe FLUSH PRN (11:02)
[2025-05-30] MEDS ORDERED: Lactated Ringers 1,000 ML IV SCH (11:15)
[2025-05-30] MEDS ORDERED: Sodium Chloride 0.9% 10 ML Syringe FLUSH SCH (21:00)
== END 2025-05-26 14:30 | disposition home or self-care (01) ==
LOC: JD.SDS 07:00
PROVIDERS: ATTEND Orthopaedic Surgery
DX: M17.0 Bilateral primary osteoarthritis of knee (principal); F17.200 Nicotine dependence, unspecified, uncomplicated; Z88.5 Allergy status to narcotic agent; Z88.8 Allergy status to other drugs, medicaments and biological substances; Z79.82 Long term (current) use of aspirin; Z79.899 Other long term (current) drug therapy
CPT/HCPCS: 0055T; 20610; 27447; 73560; 97116; 97161; A9270; C1713; C1776; J0169; J0690; J0697; J1200; J1885; J2250; J2272; J2704; J2795; J3010; J3373; J7120; 01402; 64447; J0665; J3301; J3490